=== PATIENT | female | born 1995 | race Caucasian/White ===

== ENCOUNTER → 2018-04-19 | Day surgery (SDC) | payer OTHER ==
[~2018-04-19] MED LIST: BIRTH CONTROL PILL PO; BUPIVACAINE 0.5% 50 ML VIAL. ONE; BUPIVACAINE MPF 0.5% 30 ML VIAL. ONE; DEXAMETHASONE SOD PHOS 20 MG/5 ML VIAL. ONE; EPINEPHrine 1 MG/ML VIAL ONE; EPINEPHrine VIAL 30 MG/30 ML VIAL ONE; FAMOTIDINE 20 MG/2 ML VIAL ONE; HYDROmorphone 2 MG/ML VIAL IV PRN; IV RINGERS,LACTATED 1000ML 1,000 ML IV SCH; KETOROLAC 30 MG/ML VIAL. IV PRN; KETOROLAC 30 MG/ML VIAL. ONE; LIDOCAINE 1% PF 2 ML VIAL. ID PRN; LIDOCAINE 2% PF 2ML VIAL. ONE; MIDAZOLAM HCL/PF 2 MG/2 ML VIAL. ONE; MORPHINE SULFATE 2 MG/ML VIAL. ONE; ONDANSETRON PF 4 MG/2 ML VIAL. IV PRN; ONDANSETRON PF 4 MG/2 ML VIAL. ONE; OXYC-327 PO; PROCHLORPERAZINE 10 MG/2 ML VIAL. IV PRN; PROPOFOL 20 ML IV ONE; ROCURONIUM 50 MG/5 ML VIAL. ONE; SCOPOLAMINE 1.5MG PATCH. TD ONE; fentaNYL PF VIAL 100 MCG/2 ML VIAL IV PRN; fentaNYL PF VIAL 100 MCG/2 ML VIAL ONE
[2018-04-19 08:56] LABS: U PREG PATIENT NEGATIVE (NEG)
[2018-04-19] MEDS: MORPHINE SULFATE 2 MG/ML VIAL. IV PRN ×2 (13:24→13:35)
[2018-04-19 15:06] VITALS: BP 121/77
--- NOTE | 2018-04-19 15:24 | DISCH ---
DISCHARGE INSTRUCTIONS Condition on Discharge Condition on Discharge: Stable Activity After Discharge Activity Instructions for Disc: Other, see below (wear immobilizer at night at all times, may remove for pendulum exercises) Other activity instructions: May use right arm for fine motor use writing typing etc. no lifting pushing Diet after Discharge Diet after Discharge: Regular Wound Incision Care Wound/Incision Care: Ice to area for comfort, Change dressing (May remove dressing in 2 days may then shower) Contacting the DR. after DC Call your doctor for: Concerns you may have Follow-Up Follow up with: [facility] 7-10 days ANGELICA MONTANA MD Apr 19, 2018 15:24
--- NOTE | 2018-04-19 16:04 | PDOC4 ---
Operative Note Operative Note Date of surgery: 04/19/2018 Preoperative diagnosis: Right shoulder anterior instability Postoperative diagnosis: Same with soft tissue Bankart lesion no bony deficit Operative procedure: Right shoulder arthroscopy arthroscopic Bankart repair Surgeon: [facility] Anesthesia: Gen. plus scalene block Estimated blood loss: 10 mL Complications: None Operative indications: Elsa is a 22-year-old female with multiple right dominant shoulder dislocations that her very low trauma or atraumatic in onset. She had described a dislocation when she was snowboarding and got some air and was using her arms to balance. She also described another dislocation episode when she was waking up and just stretching her arms. The right arm is grossly unstable at this point very limiting to her daily activities as well as expected requirements for her service. She is currently a college student down at [employer] and in the [employer]. She certainly does have findings of anterior instability and apprehension no multidirectional instability and no bony deficit is noted on imaging studies. I had gone over with her the high risk of dislocation given her previous history going forward and arthroscopic versus open treatment options for treating this condition. Given that she does not have a bony deficit arthroscopic treatment is expected to be as effective as open treatment and I went over risks benefits postoperative course with her of the stabilization procedure the rationale for protection and the expected restriction from contact type activities pushups carrying a pack etc. for probably 5-6 months. In the interim described the recovery process to her along with physical therapy. And finally the risks benefits postoperative course of the procedure including the possibility of infection recurrent instability nerve or blood vessel damage continued pain medical or other anesthetic complications among others all her questions were answered she agrees to proceed with surgical evaluation and treatment. Operative text: Patient was identified procedure verified patient placed in the supine position on the operating table. After adequate amounts of general anesthesia plus a pre-existing scalene block were obtained she was placed decubitus solution right side up all bony prominences were well-padded and the right shoulder was prepped and draped in standard sterile fashion. After timeout was performed patient procedure identified and verified the shoulder was first examined under anesthesia and found to be grossly unstable to anterior load and shift and she was noted to have no evidence of any multidirectional instability. The right shoulder was then placed in the arthroscopic arm burton under 10 pounds of traction a standard posterior portal was established an anterior portal established using spinal needle localization and the shoulder joint was systematically examined. She did have a pendulous anterior-inferior labrum with damage to the anterior-inferior capsular attachment without any type of bony Bankart lesion. Likewise no bony deficit was noted and glenohumeral cartilage was noted be in good condition as were the rotator cuff attachments superior labrum and biceps anchor. Normal bare area of the humerus and no Hill-Sachs lesion. The anterior capsule was detached from the glenoid from approximately the 2 o'clock position around to the 7 o'clock position sharply and bony surfaces were abraded with the arthroscopic shaver to get to good bleeding bony surface. A suture passing device was used to pass sutures at approximately the 7 o'clock position tightening up the inferior capsule using a juggernaut all suture anchor tied with sliding locking knot backed up by alternating post-half hitches which tension the inferior capsule and started to establish a labral bumper. Additional sutures were passed slightly more superiorly and anchored at the 4:00 and 3:00 positions at the edge of the glenoid face. Excellent labral bumper was drilled the stability was restored with minimal restriction of her external rotation in abduction. The joint was drained of arthroscopic fluid portals were closed sterile dressings were applied a short was placed in an immobilizer extirpated transferred to postop holding in stable condition having tolerated procedure well. I had provided her a written note on the expected recovery course including fine motor use of the shoulder only allowing writing and typing no grasping pushing pulling or lifting for about the first 6 weeks. Healing and strength permitting I expect that she may be able to return to increased activities such as strengthening with physical therapy at the 6 week point, and improvement permitting, possibility of doing some running or noncontact activities beyond 3 months postoperatively. It is expected that she will not be able to do pushups carrying a pack or other heavy lifting or contact activity until about 5-6 months again depending on her recovery process ANGELICA MONTANA MD Apr 19, 2018 16:04
== END | disposition home or self-care (01) ==
LOC: SURG 08:27
PROVIDERS: ATTEND Orthopaedic Surgery
DX: M25.311 Other instability, right shoulder (principal); Z79.899 Other long term (current) drug therapy
CPT/HCPCS: 29806; 81025; A7015; C1713; J0171; J0690; J0780; J1100; J1885; J2001; J2250; J2270; J2405; J2704; J3010; J3490; S0028; C1769